=== PATIENT | female | born 1945 | race Hispanic/Latino ===

== ENCOUNTER 2018-07-17 11:33 | Outpatient (CLI) | payer MEDICARE, MEDICAID ==
--- NOTE | 2018-07-17 13:16 | RAD ---
CHEST TWO VIEWS: History: Lung mass. FINDINGS: No comparison is available. Cardiac silhouette and pulmonary vasculature are unremarkable. A rounded 1.0 cm nodule projects over the left mid chest. Not well seen on the lateral view. Subtle densities a t the right apex are noted but are not convincingly pulmonary nodules, as there is overlapping of oss eous structures. Mild linear scarring at the lung bases. There is obscuration of the apex of the left hemidiaphragm on the lateral view. No pleural fluid or pneumothorax are evident. IMPRESSION: Nodule over the left lung and possible infiltrate or parenchymal lesion at the left lung base. Especi ally given the historically stated lung mass, please consider CT chest for better characterization. POS: [facility]
== END 2018-07-17 11:34 | disposition home or self-care (01) ==
LOC: NAV RAD 11:33
PROVIDERS: ATTEND Family Medicine
DX: R91.8 Other nonspecific abnormal finding of lung field (principal); R91.1 Solitary pulmonary nodule
CPT/HCPCS: 71046